=== PATIENT | female | born 1965 | race Caucasian/White ===

== ENCOUNTER → 2017-08-16 | Emergency (ER) | payer OTHER ==
[~2017-08-16] VITALS: Ht 162.6 cm; Wt 45.4 kg
[~2017-08-16] MED LIST: CHLORHEXIDINE FL1 ML; DICLOFENAC SODI50 MG PO; LEVAQUIN750 MG; MOTRIN800 MG PO
== END | disposition home or self-care (01) ==
LOC: ER 19:31
DX: J02.9 Acute pharyngitis, unspecified (principal)

== ENCOUNTER → 2017-09-01 | Outpatient (CLI) | payer OTHER ==
[~2017-09-01] MED LIST changes: +SENNA LAX8.6 MG
== END | disposition home or self-care (01) ==
LOC: PPHC 15:49
DX: K62.89 Other specified diseases of anus and rectum (principal)

== ENCOUNTER → 2019-05-19 11:23 | Outpatient (CLI) | payer OTHER | END | disposition home or self-care (01) | LOC: LAB 11:23 | DX: J11.1 Influenza due to unidentified influenza virus with other respiratory manifestations (principal) ==

== ENCOUNTER 2019-07-29 09:50 | Outpatient (CLI) | payer OTHER | END 2019-07-29 18:00 | disposition home or self-care (01) | LOC: LAB 09:50 | DX: R53.1 Weakness (principal); R53.81 Other malaise ==

== ENCOUNTER 2019-08-10 15:16 | Outpatient (CLI) | payer OTHER | END 2019-08-10 15:22 | disposition home or self-care (01) | LOC: LAB 15:16 | DX: J11.1 Influenza due to unidentified influenza virus with other respiratory manifestations (principal) ==